=== PATIENT | male | born 2000 | race Caucasian/White ===

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

== ENCOUNTER 2021-08-13 00:56 | Inpatient (IN) ==
[2021-08-13] MEDS ORDERED: Nicotine GUM 4MG FRUIT FLAVOR PO PRN (01:55)
[2021-08-13 02:06] LABS: ABS Basophils 0.1 10^3/ul (0-0.2); ABS Eosinophils 0.2 10^3/ul (0-0.6); ABS Lymphocytes 2.2 10^3/ul (1.0-4.8); ABS Monocytes 0.5 10^3/ul (0-0.8); ABS Neutrophils 7.1 10^3/ul (1.5-7.7); Eosinophil % 1.9 %; Hematocrit 44 % (42-52); Hemoglobin 14.8 g/dL (14.0-18.0); Lymphocyte % 21.5 %; Mean Corpuscular HGB Conc 34 g/dL (31-36); Mean Corpuscular Hemoglobin 29 pg (27-31); Mean Corpuscular Volume 87 fL (80-94); Mean Platelet Volume 9.3 fL (7.4-10.4); Platelet Count 273 10^3/uL (150-450); Red Blood Count 5.05 10^6 /uL (4.18-5.48); Red Cell Distribution Width 13 % (10-15); White Blood Count 10.1 10^3/uL (3.5-10.8)
[2021-08-13 02:14] LABS: ALT 11 U/L (7-52); AST 14 U/L (13-39); Albumin 4.8 g/dL (3.2-5.2); Albumin/Globulin Ratio 1.5 (1-3); Alkaline Phosphatase 64 U/L (35-149); Anion Gap 6 mmol/L (2-11); Blood Urea Nitrogen 11 mg/dL (6-24); CO2 Carbon Dioxide 29 mmol/L (22-32); Calcium 9.6 mg/dL (8.6-10.3); Chloride 106 mmol/L (101-111); Globulin 3.1 g/dL (2-4); Glucose 94 mg/dL (70-100); Potassium 3.7 mmol/L (3.5-5.0); Sodium 141 mmol/L (135-145); Total Protein 7.9 g/dL (6.4-8.9); eGFR CKD-EPI 100.8 (>60)
[2021-08-13 02:35] LABS: Acetaminophen < 15 mcg/mL; Alcohol, S < 13 mg/dL (<13); Salicylate < 2.50 mg/dL (<30)
[2021-08-13 02:51] LABS: TSH Ultra Thyroid Stim Horm 3.62 mcIU/mL (0.34-5.60)
[2021-08-13] MEDS ORDERED: Al Hydrox/Mg Hydrox/Simet LIQ 30 ML UDC PO PRN (04:46)
[2021-08-13] MEDS: Nicotine GUM 2MG FRUIT FLAVOR PO PRN ×4 (05:06→17:11)
[2021-08-13] MEDS: Nicotine PATCH 21 MG/24 HR PATCH TRANSDERM SCH (11:40)
[2021-08-13] MEDS: Vitamin THERAPEUTIC TAB PO SCH (11:43)
[2021-08-14] MEDS: Nicotine GUM 2MG FRUIT FLAVOR PO PRN ×6 (01:55→22:20)
[2021-08-14] MEDS: Nicotine PATCH 21 MG/24 HR PATCH TRANSDERM SCH (08:50)
[2021-08-14] MEDS: Vitamin THERAPEUTIC TAB PO SCH (08:50)
[2021-08-15] MEDS: Nicotine GUM 2MG FRUIT FLAVOR PO PRN ×2 (07:44→10:01)
[2021-08-15] MEDS: Nicotine PATCH 21 MG/24 HR PATCH TRANSDERM SCH (07:44)
[2021-08-15] MEDS: Vitamin THERAPEUTIC TAB PO SCH (07:45)
[2021-08-15 08:27] VITALS: BP 139/69
== END 2021-08-15 12:01 | disposition home or self-care (01) | DRG 755 ==
LOC: ED 00:56 → BSU 04:00
PROVIDERS: ADMIT Psychiatry & Neurology Psychiatry; ATTEND Psychiatry & Neurology Psychiatry